=== PATIENT | female | born 1930 | race Caucasian/White ===

== ENCOUNTER 2016-05-26 13:34 | Emergency (ER) | payer OTHER ==
[~2016-05-26] VITALS: Ht 160 cm; Wt 82.2 kg
[~2016-05-26 13:34] MED LIST: CIPR500T4 PO; LOSA50TA6 PO; OMEP40CA6 PO; POLY17PO6 PO; TYL500 PO
[2016-05-26 13:41] VITALS: Ht 160 cm; Wt 82.2 kg
[2016-05-26 16:22] VITALS: BP 182/74; PULSE 70; RESP 14
== END 2016-05-26 19:55 | disposition left against medical advice (07) ==
LOC: E/R 13:34
DX: Z53.21 Procedure and treatment not carried out due to patient leaving prior to being seen by health care provider (principal)

== ENCOUNTER 2017-03-07 16:05 | Observation (INO) | payer OTHER ==
[~2017-03-07] VITALS: Ht 152.4 cm; Wt 80.8 kg
[2017-03-07] MEDS ORDERED: ASPIRIN 325 MG TAB PO STA (17:52)
[2017-03-07 18:09] LABS: BASOPHILS % 0.2 % (0.0-2.0); EOSINOPHILS # 0.1 10^3/ul (0.0-0.5); EOSINOPHILS % 1.4 % (0.0-7.0); HEMATOCRIT 36.3 % (37.0-47.0); HEMOGLOBIN 12.4 g/dl (12.0-16.0); LYMPHOCYTES # 2.8 10^3/ul (0.8-2.9); MEAN CORPUSCULAR HEMOGLOBIN 30.5 pg (29.0-33.0); MEAN CORPUSCULAR HGB CONC 34.2 g/dl (32.0-37.0); MEAN CORPUSCULAR VOLUME 89.4 fl (82.0-101.0); MEAN PLATELET VOLUME 8.6 fl (7.4-10.4); MONOCYTE # 0.6 10^3/ul (0.3-0.9); MONOCYTES % 6.9 % (0.0-11.0); NEUTROPHIL # 5.7 10^3/ul (1.6-7.5); NEUTROPHILS % 61.3 % (39.0-77.0); PLATELET COUNT 337 10^3/UL (140-415); RED BLOOD COUNT 4.06 10^6/ul (4.20-5.40); WHITE BLOOD COUNT 9.3 10^3/ul (4.8-10.8)
--- NOTE | 2017-03-07 18:15 | ERD ---
ER Documentation Chief Complaint Chief Complaint chest pain and back pain x 3 days HPI This is an 86-year-old female with a known history of hypertension who presents to the emergency department intermittent chest pain for the past 3 days. She states that the pain is located on the left chest wall does radiate to the left shoulder. She denies any radiation to the back or arm contrary to the triage note she states the pain is stated above goes to the left shoulder she states that the pain will last for roughly 30 minutes and then will spontaneously resolved. Roughly an hour prior to arrival the patient had worsening of the chest pain which became 9 out of 10 in intensity. Her caregiver immediately brought her to the emergency department to be further evaluated. She had no associated symptoms of nausea vomiting or diaphoresis. She states she has never had any similar symptoms in the past. Takes 81 mg of aspirin on a daily basis but did not take her aspirin today. She has no shortness of breath at rest or exertion. She denies any abdominal pain. Patient stated she did take Tylenol just prior to arrival which improved her pain and she currently is chest pain-free after the Tylenol ROS All systems reviewed and are negative except as per history of present illness. Medications Home Meds Reported Medications Ibuprofen* (Ibuprofen*) 200 Mg Capsule, 200 MG PO NEEDED, CAP 03/07/17 Multivit-Min/FA/Lycopen/Lutein (Centravites 50 Plus Tablet) 1 Each Tablet, 1 EACH PO DAILY, TAB 03/07/17 Calcium Carb/Magnesium Oxid/D3 (Calcium Magnesium + D Tablet) 1 Each Tablet, 1 EACH PO DAILY, TAB 03/07/17 Aspirin* (Aspirin* EC) 81 Mg Tablet.dr, 81 MG PO DAILY, TAB 03/07/17 Tramadol Hcl* (Ultram*) 50 Mg Tablet, 50 MG PO BID Y for PAIN, TAB 03/07/17 Amlodipine Besylate* (Norvasc*) 5 Mg Tablet, 5 MG PO DAILY, TAB 03/07/17 Ranitidine Hcl* (Ranitidine Hcl*) 150 Mg Tablet, 150 MG PO Q12, #60 TAB 03/07/17 Losartan Potassium* (Losartan Potassium*) 50 Mg Tablet, 50 MG PO DAILY, TAB 11/25/14 Discontinued Reported Medications Omeprazole* (Omeprazole*) 40 Mg Capsule.dr, 40 MG PO DAILY, CAP 11/25/14 Discontinued Scripts Polyethylene Glycol* (Miralax*) 17 Gm Powd.pack, 17 GM PO DAILY, #7 Prov:MALDONADO CARABALLO DO 02/17/16 Acetaminophen* (Tylenol*) 500 Mg Tab, 500 MG PO Q4H Y for MILD PAIN LEVEL 1-3, # 20 TAB Prov:MALDONADO CARABALLO DO 02/17/16 Ciprofloxacin Hcl* (Ciprofloxacin Hcl*) 500 Mg Tablet, 500 MG PO BID for 5 Days , TAB Prov:MALDONADO CARABALLO DO 02/17/16 Allergies Allergies: Coded Allergies: Penicillins (Verified Allergy, Mild, HIVES, VOMIT, 03/07/17) Sulfa (Sulfonamide Antibiotics) (Verified Allergy, Mild, HIVES,VOMIT, 02/11) PMhx/Soc History of Surgery: Yes (cholesystectomy, knee sx) Anesthesia Reaction: No Hx Neurological Disorder: No Hx Respiratory Disorders: No Hx Cardiac Disorders: Yes (htn) Hx Psychiatric Problems: No Hx Miscellaneous Medical Probl: Yes (Arthritis) Hx Alcohol Use: No Hx Substance Use: No Hx Tobacco Use: No Smoking Status: Never smoker Physical Exam Vitals Vital Signs Date Time Temp Pulse Resp B/P Pulse Ox O2 Delivery O2 Flow Rate FiO2 03/07/17 19:50 66 18 145/63 99 Room Air 03/07/17 17:41 98.0 70 21 153/66 97 Room Air 03/07/17 16:23 98.1 80 18 154/70 95 Physical Exam Constitutional:Well-developed. Well-nourished. HEENT:Normocephalic. Atraumatic.Pupils were equal round reactive to light. Moist mucous membranes.No tonsillar exudates. Neck: No nuchal rigidity. No lymphadenopathy. No posterior cervical spine tenderness or step-offs. Respiratory: Not using accessory muscles of respiration.Lungs were clear to auscultation bilaterally. No rhonchi. No rales. No wheezing. Cardiovascular: Regular rate regular rhythm.No murmurs. No rubs were appreciated.S1, S2 normal. Distal pulses are palpable 2+ bilaterally. GI: Abdomen was soft. Nontender. Non Distended. No pulsatile abdominal masses or bruits. No rebound. No guarding. Bowel sounds were present and normal. Muscle skeletal: Full range of motion of both the upper and lower extremities bilaterally.Normal muscle tone.No assymetrical calf tenderness or swelling. Skin: No petechia, no purpura. No lesions on the palms or the soles of the feet. No maculopapular rash. NEURO: Patient was alert, awake, orientated x3.No facial droop. Gait observed and normal with no ataxia.Speech had regular rate and rhythm. No focal neurological deficits. Result Diagram: 03/07/17 1741 03/07/17 1741 Results 24 hrs Laboratory Tests Test 03/07/17 17:41 White Blood Count 9.310^3/ul Red Blood Count 4.0610^6/ul Hemoglobin 12.4g/dl Hematocrit 36.3% Mean Corpuscular Volume 89.4fl Mean Corpuscular Hemoglobin 30.5pg Mean Corpuscular Hemoglobin Concent 34.2g/dl Red Cell Distribution Width 13.0% Platelet Count 04950^3/UL Mean Platelet Volume 8.6fl Neutrophils % 61.3% Lymphocytes % 30.0% Monocytes % 6.9% Eosinophils % 1.4% Basophils % 0.2% Nucleated Red Blood Cells % 0.0/100WBC Neutrophils # 5.710^3/ul Lymphocytes # 2.810^3/ul Monocytes # 0.610^3/ul Eosinophils # 0.110^3/ul Basophils # 0.010^3/ul Nucleated Red Blood Cells # 0.010^3/ul Prothrombin Time 13.2Sec Prothrombin Time Ratio 1.0 INR International Normalized Ratio 0.99 Activated Partial Thromboplast Time 31.7Sec Sodium Level 135mmol/L Potassium Level 4.2mmol/L Chloride Level 101mmol/L Carbon Dioxide Level 26mmol/L Anion Gap 12 Blood Urea Nitrogen 13mg/dl Creatinine 0.70mg/dl Glucose Level 109mg/dl Calcium Level 9.7mg/dl Total Bilirubin 0.1mg/dl Direct Bilirubin 0.00mg/dl Indirect Bilirubin 0.1mg/dl Aspartate Amino Transf (AST/SGOT) 28IU/L Alanine Aminotransferase (ALT/SGPT) 35IU/L Alkaline Phosphatase 78IU/L Creatine Kinase 119IU/L Creatine Kinase Index 1.3 Creatinine Kinase MB (Mass) 1.50ng/ml Troponin I < 0.012ng/ml B-Type Natriuretic Peptide 93PG/ML Total Protein 7.3g/dl Albumin 3.9g/dl Globulin 3.40g/dl Albumin/Globulin Ratio 1.14 Current Medications Medications (Trade) Dose Ordered Sig/Chinedu Route PRN Reason Start Time Stop Time Status Last Admin Dose Admin Aspirin (Aspirin) 325 mg ONCE STAT PO 03/07/17 17:52 03/07/17 17:56 DC 03/07/17 18:07 Ondansetron HCl (Zofran Inj) 4 mg ER BRIDGE PRN IV NAUSEA AND/OR VOMITING 03/07/17 20:30 03/08/17 20:29 Acetaminophen (Tylenol Tab) 650 mg ER BRIDGE PRN PO MILD PAIN/FEVER 03/07/17 20:30 03/08/17 20:29 Procedures/MDM The patient presented to the emergency department with chest pain. My clinical evaluation and workup was to distinguish minor causes of chest pain from acute life threatening conditions such as myocardial infarction, pulmonary embolism, aortic dissection, esophageal rupture, cardiac tamponade. The patient was placed on a threat monitoring analyst and continuous pulse oximetry. IV access established by nursing staff. The patient was given 325 mg of aspirin p.o. in the emergency department. I did not administer nitroglycerin at this time the patient was chest pain-free. 12 Lead EKG tracing ordered and reviewed by myself showed: Normal sinus rhythm of 81 bpm and no arrhythmia. NM interval normal. QRS duration widened at 136 ms with an RSR prime pattern in lead V1 V2 consistent with a right bundle branch block No ST segment elevation No ST segment depression. No changes consistent with acute ischemia. Patient's troponin was normal. However given the patient's clinical symptoms I did feel she required admission for observation for serial 12-lead EKG tracings and cardiac set of enzymes. She will be admitted to the hospitalist Dr. Metz. Departure Diagnosis: Primary Impression: Chest pain Chest pain type: unspecified Qualified Code: R07.9 - Chest pain, unspecified type Condition: Serious MARLYN EDWARD Mar 07, 2017 18:15
[2017-03-07 18:31] LABS: INR 0.99; PROTIME 13.2 Sec (11.9-14.9)
[2017-03-07 18:32] LABS: ALANINE AMINOTRANSFERASE 35 IU/L (13-69); ALBUMIN 3.9 g/dl (3.3-4.9); ALBUMIN/GLOBULIN RATIO 1.14; ALKALINE PHOSPHATASE 78 IU/L (42-121); ASPARTATE AMINO TRANSFERASE 28 IU/L (15-46); BILIRUBIN,INDIRECT 0.1 mg/dl (0-1.1); BILIRUBIN,TOTAL 0.1 mg/dl (0.2-1.3); BLOOD UREA NITROGEN 13 mg/dl (7-20); CALCIUM 9.7 mg/dl (8.4-10.2); CARBON DIOXIDE 26 mmol/L (21-31); CHLORIDE 101 mmol/L (97-110); CREATINE KINASE 119 IU/L (23-200); GLUCOSE 109 mg/dl (70-220); PARTIAL THROMBOPLASTIN TIME 31.7 Sec (25.0-35.0); SODIUM 135 mmol/L (135-144); TOTAL PROTEIN 7.3 g/dl (6.1-8.1)
[2017-03-07 18:34] LABS: ANION GAP 12 (8-16); POTASSIUM 4.2 mmol/L (3.5-5.1)
--- NOTE | 2017-03-07 18:42 | RADRPT ---
PROCEDURE: XR Chest 1 View. CLINICAL INDICATION: Chest pain. TECHNIQUE: Single view of the chest was obtained. COMPARISON: CR CHEST 02/17/2016 FINDINGS: The heart size is within normal limits. Calcified atherosclerosis is noted in the aorta. The lungs are hyperexpanded. Diffuse mild interstitial prominence is seen in both lungs. Scattered atelectasis is identified in the bilateral lower lungs. No consolidations are identified. No pneumothorax is s een. Osseous structures are intact. IMPRESSION: Calcified atherosclerosis in the aorta. Hyperexpanded lungs with diffuse mild interstitial prominence in both lungs. Interstitial prominenc e could be chronic. Findings could reflect COPD. Scattered atelectasis in the bilateral lower lungs. RPTAT: AA .Aravind Pablo MD, Date Time Electronically viewed and signed by .Aravind Pablo MD, MD on 03/07/2017 18:42 .P/
[2017-03-07 18:45] LABS: B-TYPE NATRIURETIC PEPTIDE 93 PG/ML (0-450)
[2017-03-07 19:06] LABS: TROPONIN-I < 0.012 ng/ml (0.00-0.12)
[2017-03-07] MEDS ORDERED: RANI150T5 PO (19:28)
[2017-03-07] MEDS ORDERED: AMLO5TAB4 PO (19:29)
[2017-03-07] MEDS ORDERED: ASPI-664 PO (19:30)
[2017-03-07] MEDS ORDERED: TRAM-40 PO (19:30)
[2017-03-07] MEDS ORDERED: [UNRECOGNIZED DRUG - CODE] PO (19:33)
[2017-03-07] MEDS ORDERED: MULT-900 PO (19:36)
[2017-03-07] MEDS ORDERED: IBUP200C PO (19:58)
[2017-03-07] MEDS ORDERED: BISACODYL (EC) 5 MG TAB PO PRN (20:30)
[2017-03-07] MEDS ORDERED: ACETAMINOPHEN 325 MG TAB PO PRN ×2 (20:30)
[2017-03-07] MEDS ORDERED: ONDANSETRON 4 MG TAB PO PRN (20:30)
[2017-03-07] MEDS ORDERED: NITROGLYCERIN (SL) 0.4 MG TAB SL PRN (20:30)
[2017-03-07] MEDS ORDERED: NACL 0.9% 3 ML SYG IV SCH (20:30)
[2017-03-07] MEDS ORDERED: DOCUSATE SODIUM 100 MG CAP PO PRN (20:30)
[2017-03-07] MEDS ORDERED: ONDANSETRON 4 MG INJ IV PRN (20:30)
[2017-03-07] MEDS ORDERED: traMADol 50 MG TAB PO PRN (20:30)
[2017-03-07] MEDS ORDERED: morphine 2 MG INJ IV PRN (20:30)
[2017-03-07] MEDS: AMLODIPINE 5 MG TAB PO SCH (21:55)
[2017-03-07] MEDS: CALCIUM/VITAMIN D (500/200) TAB PO SCH (21:55)
[2017-03-07] MEDS: RANITIDINE 150 MG TAB PO SCH (21:55)
[2017-03-07 21:57] VITALS: TEMP 98.2
[2017-03-07 23:34] LABS: CREATINE KINASE 102 IU/L (23-200)
[2017-03-07 23:48] LABS: CK-MB 1.35 ng/ml (0.0-2.4)
[2017-03-07 23:53] LABS: TROPONIN-I < 0.012 ng/ml (0.00-0.12)
[2017-03-08] VITALS (10 sets, daily range): BP systolic 120–154; BP diastolic 63–72; PULSE 66–166; RESP 18–20; Ht 152.4 cm; Wt 80.8 kg
[2017-03-08 05:16] LABS: BASOPHILS % 0.4 % (0.0-2.0); EOSINOPHILS # 0.1 10^3/ul (0.0-0.5); EOSINOPHILS % 1.5 % (0.0-7.0); HEMATOCRIT 38.4 % (37.0-47.0); LYMPHOCYTES # 2.2 10^3/ul (0.8-2.9); LYMPHOCYTES % 27.8 % (15.0-51.0); MEAN CORPUSCULAR HEMOGLOBIN 30.2 pg (29.0-33.0); MEAN CORPUSCULAR HGB CONC 33.9 g/dl (32.0-37.0); MEAN CORPUSCULAR VOLUME 89.3 fl (82.0-101.0); MEAN PLATELET VOLUME 8.6 fl (7.4-10.4); MONOCYTE # 0.6 10^3/ul (0.3-0.9); MONOCYTES % 7.6 % (0.0-11.0); NEUTROPHIL # 4.9 10^3/ul (1.6-7.5); NEUTROPHILS % 62.4 % (39.0-77.0); PLATELET COUNT 344 10^3/UL (140-415); RED CELL DISTRIBUTION WIDTH 12.9 % (11.5-14.5); WHITE BLOOD COUNT 7.9 10^3/ul (4.8-10.8)
[2017-03-08 06:25] LABS: ALBUMIN 3.8 g/dl (3.3-4.9); ALBUMIN/GLOBULIN RATIO 1.11; BILIRUBIN,INDIRECT 0.3 mg/dl (0-1.1); BILIRUBIN,TOTAL 0.3 mg/dl (0.2-1.3); CALCIUM 10.3 mg/dl (8.4-10.2); CHOL/HDL RATIO 4.6 RATIO; CREATINE KINASE 93 IU/L (23-200); CREATININE 0.57 mg/dl (0.44-1.00); POTASSIUM 4.7 mmol/L (3.5-5.1); TOTAL PROTEIN 7.2 g/dl (6.1-8.1)
[2017-03-08 06:26] LABS: CK-MB 1.31 ng/ml (0.0-2.4)
[2017-03-08 06:28] LABS: TROPONIN-I < 0.012 ng/ml (0.00-0.12)
[2017-03-08 06:49] LABS: THYROID STIMULATING HORMONE 2.01 MIU/L (0.465-4.680)
--- NOTE | 2017-03-08 07:03 | HP ---
Date/Time of Note Date/Time of Note DATE: 03/08/17 TIME: 06:58 Assessment/Plan VTE Prophylaxis VTE Prophylaxis Intervention: SCD's Lines/Catheters Urinary Cath still in place: No Assessment/Plan Chief Complaint/Hosp Course This is a 86 year female being admitted to the telemetry floor for: #1 chest pain: Rule out ACS. We have hypertension. She does have a right bundle branch block observed on her EKG. At the current time will trend cardiac enzymes 3, 1st set was negative. Will check echocardiogram in the a.m. Cardiology consultation. #2 hypertension: We will continue patient's home medication of Norvasc, losartan #3 reflux: We will continue a home H2 sudarshan #4 DVT and GI prolapses: SCDs, home H2 sudarshan Further treatment strategy will be implemented as per the clinical course Problems: HPI/ROS Admit Date/Time Admit Date/Time Mar 07, 2017 at 20:05 Hx of Present Illness Chief complaint: Chest pain This is an 86-year-old female with a known history of hypertension who presents to the emergency department intermittent chest pain for the past 3 days. She states that the pain is located on the left chest wall does radiate to the left shoulder. She denies any radiation to the back or arm contrary to the triage note she states the pain is stated above goes to the left shoulder she states that the pain will last for roughly 30 minutes and then will spontaneously resolved. Roughly an hour prior to arrival the patient had worsening of the chest pain which became 9 out of 10 in intensity. Her caregiver immediately brought her to the emergency department to be further evaluated. She had no associated symptoms of nausea vomiting or diaphoresis. She states she has never had any similar symptoms in the past. Takes 81 mg of aspirin on a daily basis but did not take her aspirin today. She has no shortness of breath at rest or exertion. She denies any abdominal pain. Patient stated she did take Tylenol just prior to arrival which improved her pain and she currently is chest pain-free after the Tylenol. Allergies: Penicillin, sulfa Medications: See ANTHONY LOVE Const: As per HPI Eyes : No pain discharge or redness or change in visual acuity ENT: No pain, sore throat, congestion, congestion, dysphagia or discharge Respiratory: As per HPI Cardiovascular: As per HPI GI : no change in appetite, abdominal pain, nausea, vomiting, diarrhea, constipation, or change in the color his stool Genitourinary: No dysuria, hematuria, flank pain , discharge or CVA tenderness Musculoskeletal: No joint pain, back pain, neck pain, restricted range of motion in neck or joints Skin: No rash, bruising or hives Neuro: No headache, dizziness, syncope, seizure, focal weakness Endocrine: No polyuria, polydipsia, temperature intolerance Psych: No hallucination, depression, anxiety or suicidal ideation PMH/Family/Social Past Medical History Hypertension, arthritis Past Surgical History Bilateral knee surgery, cholecystectomy, total hysterectomy, bladder surgery Family History Significant Family History: no pertinent family hx Social History Alcohol Use: none Smoking Status: Never smoker Drug Use: none Exam/Review of Systems Vital Signs Vitals Vital Signs Date Time Temp Pulse Resp B/P Pulse Ox O2 Delivery O2 Flow Rate FiO2 03/08/17 04:00 69 03/08/17 01:56 98.3 19 136/72 99 Room Air Exam Exam General: Is a very pleasant well-developed female lying in bed in no acute distress. She states that her pain has resolved. HEENT: Atraumatic, normocephalic. The pupils are equal, round and reactive. Extraocular motor are intact Neck: Supple with full range of motion. No rigidity or meningismus Lungs: Clear to auscultation bilaterally no crackles rales or wheezing Heart: Normal S1-S2, Regular rhythm and rate. No overt murmurs appreciated Abdomen: Soft , nontender, nondistended , bowel sounds are present. No guarding no rebound tenderness , No masses or organomegaly. No costovertebral temporal angle mass Extremities: Normal to inspection, no edema no cyanosis Neurologic: Normal mental status, speech normal, cranial nerves II through XII are intact, motor and sensory are intact, no focal weakness Additional Comments PROCEDURE: XR Chest 1 View. CLINICAL INDICATION: Chest pain. TECHNIQUE: Single view of the chest was obtained. COMPARISON: CR CHEST 02/17/2016 FINDINGS: The heart size is within normal limits. Calcified atherosclerosis is noted in the aorta. The lungs are hyperexpanded. Diffuse mild interstitial prominence is seen in both lungs. Scattered atelectasis is identified in the bilateral lower lungs. No consolidations are identified. No pneumothorax is seen. Osseous structures are intact. IMPRESSION: Calcified atherosclerosis in the aorta. Hyperexpanded lungs with diffuse mild interstitial prominence in both lungs. Interstitial prominence could be chronic. Findings could reflect COPD. Scattered atelectasis in the bilateral lower lungs. RPTAT: AA .Aravind Pablo MD, Date Time Electronically viewed and signed by .Aravind Pablo MD, MD on 03/07/2017 18:42 .P/ CC: MARLYN EDWARD 12 Lead EKG tracing ordered and reviewed by myself showed: Normal sinus rhythm of 81 bpm and no arrhythmia. [place] interval normal. QRS duration widened at 136 ms with an RSR prime pattern in lead V1 V2 consistent with a right bundle branch block No ST segment elevation No ST segment depression. No changes consistent with acute ischemia. Above as per ED physician documentation Labs Result Diagram: 03/08/17 04303/08/17 043 Medications Medications Current Medications Amlodipine Besylate (Norvasc) 5 mg DAILY PO Last administered on 03/07/17 21: 55; Admin Dose 5 MG; Start 03/07/17 at 20:30 Aspirin (Halfprin) 81 mg DAILY PO ; Start 03/08/17 at 09:00 Losartan Potassium (Cozaar) 50 mg DAILY PO ; Start 03/08/17 at 09:00 Ranitidine HCl (Zantac) 150 mg Q12 PO Last administered on 03/07/17 21:55; Admin Dose 150 MG; Start 03/07/17 at 21:00 Tramadol HCl (Ultram) 50 mg BID PRN PO PAIN; Start 03/07/17 at 20:30 Calcium/Vitamin D (Oyster Shell/ Vit-D (500/200)) 1 tab DAILY PO Last administered on 03/07/17 21:55; Admin Dose 1 TAB; Start 03/07/17 at 21:30 Multivitamins/ Minerals (Theragran-M) 1 tab DAILY PO ; Start 03/08/17 at 09:00 Ondansetron HCl (Zofran Tab) 4 mg Q6H PRN PO NAUSEA AND/OR VOMITING; Start 02/11 at 20:30 Nitroglycerin (Nitroglycerin (Sl Tab) 0.4 Mg) 1 tab Q5M PRN SL CHEST PAIN; Start 03/07/17 at 20:30 Acetaminophen (Tylenol Tab) 650 mg Q6H PRN PO PAIN LEVEL 1-3 OR FEVER; Start 03/07/17 at 20:30 Morphine Sulfate (morphine) 1 mg Q4H PRN IV PAIN LEVEL 7-10; Start 03/07/17 at 20:30 Docusate Sodium (Colace) 100 mg Q12H PRN PO CONSTIPATION; Start 03/07/17 at 20 :30 Bisacodyl (Dulcolax) 5 mg DAILY PRN PO CONSTIPATION; Start 03/07/17 at 20:30 MARLY GORE Mar 08, 2017 07:03
[2017-03-08] MEDS: SOD CHLORIDE 0.9% 1,000 ML IV SCH (07:58)
[2017-03-08] MEDS: ASPIRIN (EC) 81 MG TAB PO SCH (11:01)
[2017-03-08] MEDS: LOSARTAN 50 MG TAB PO SCH (11:01)
[2017-03-08] MEDS: CALCIUM/VITAMIN D (500/200) TAB PO SCH (11:02)
[2017-03-08] MEDS: MULTIVITAMINS/MINERALS TAB PO SCH (11:03)
[2017-03-08] MEDS: RANITIDINE 150 MG TAB PO SCH ×2 (11:03→22:17)
[2017-03-08] MEDS: AMLODIPINE 5 MG TAB PO SCH (11:04)
--- NOTE | 2017-03-08 14:21 | RADRPT ---
Echocardiogram Report Patient Name: ROGER RAM Gender: Female Date: 1930 Study Date: 08-Mar-2017 Wheel Adjuster: Nomi Zhong [facility] Location: [facility] Ref. Physician: MARLY GORE Quality: Adequate Procedures: Transthoracic echocardiogram with complete 2D, M-Mode, and doppler examination. Indications: Chest Pain. 2D/M Mode Doppler Measurement Value Normal Ranges Measurement Value Normal Ranges LVIDd 2D 4.4 3.5 - 5.6 cm AV Peak Placido 1.9 m/sec LVIDs 2D 2.9 2.1 - 4.1 cm AV Peak PG 13.9 mmHg LVPWd 2D 0.8 0.6 - 1.1 cm AI Peak PG 48.3 mmHg IVSd 2D 1.0 0.6 - 1.1 cm AI Peak Placido 3.5 m/sec AoR Diam 2D 2.9 2.0 - 3.7 cm AI PHT 376.8 msec EDV 2D 90.0 cm3 LVOT Peak Placido 1.2 m/sec ESV 2D 24.9 cm3 LVOT Peak PG 6.1 mmHg LA Dimen 2D 3.6 2.3 - 4.0 cm MV E Peak Placido 0.8 m/sec MV A Peak Placido 1.5 m/sec MV E/A 0.5 MV Decel Time 189 msec MV Decel Wright 4 MV E/A 0.5 TR Peak Placido 2.6 m/sec TR Peak PG 27.8 mmHg RVSP 38.0 mmHg Findings Left Ventricle: Normal left ventricular systolic function. Normal left ventricular cavity size. Normal left ventricular wall thickness. Ejection fraction is visually estimated at 60 %. Tissue Doppler/Mitral Doppler indices are consistent with impaired relaxation (Stage I diastolic dysfunction). Right Ventricle: Normal right ventricular size. Normal right ventricular systolic function. Left Atrium: The left atrium is normal in size. Right Atrium: The right atrium is normal in size. Mitral Valve: Mitral valve leaflets appear mildly thickened. Moderate mitral annular calcification. Trace mitral regurgitation. Aortic Valve: No hemodynamically significant aortic stenosis by doppler. Aortic cusps appear mildly calcified. Mild to moderate aortic valve regurgitation. Tricuspid Valve: Normal appearance of the tricuspid valve. Estimated peak PA systolic pressure 38 mmHg. There is trace to mild tricuspid regurgitation. Pulmonic Valve: Normal pulmonic valve appearance. Pericardium: Normal pericardium with no significant pericardial effusion. Aorta: Normal aortic root. IVC: Normal size and normal respiratory collapse consistent with normal right atrial pressure. Conclusions 1.Normal left ventricular systolic function. Normal left ventricular cavity size. Normal left ventricular wall thickness. Ejection fraction is visually estimated at 60 %. Tissue Doppler/Mitral Doppler indices are consistent with impaired relaxation (Stage I diastolic dysfunction). 2.Mitral valve leaflets appear mildly thickened. Moderate mitral annular calcification. Trace mitral regurgitation. 3.No hemodynamically significant aortic stenosis by doppler. Aortic cusps appear mildly calcified. Mild to moderate aortic valve regurgitation. 4.Normal appearance of the tricuspid valve. Estimated peak PA systolic pressure 38 mmHg. There is trace to mild tricuspid regurgitation. 5.Normal size and normal respiratory collapse consistent with normal right atrial pressure. Electronically Signed By: Wai Rockwell 08-Mar-2017 14:20:09 0800 Patient Name: ROGER RAM Study Date: 08-Mar-2017 [id number]
--- NOTE | 2017-03-08 14:53 | CONS ---
Date/Time of Note Date/Time of Note DATE: 03/08/17 TIME: 14:46 Assessment/Plan Assessment/Plan Chief Complaint/Hosp Course 1. Chest pain syndrome rule out acute coronary syndrome 2. Hypertension 3. Abnormal EKG 4. Back pain Recommendation: Patient has been admitted for rule out myocardial infarction. Cardiac enzymes have been so far negative. I will add Coreg to her regimen to control the blood pressure better. Lexiscan hearing aid assistant will be done thoracic and nonobstructive coronary artery disease. For now we will continue to monitor on telemetry. Thank you for his referral. We will continue to follow along with you. BERNARDO VERMA MD [facility] Problems: Consultation Date/Type/Reason Admit Date/Time Mar 07, 2017 at 20:05 Date of Consultation: Mar 08, 2017 Type of Consultation: cardiology Reason for Consultation chest pain Referring Provider: MARLY GORE Hx of Present Illness : Chief complaint :chest pain back pain History of present illness: Thank you for his ramp supervisor was obtained from the patient and discussion with her niece. This is a pleasant 86-year-old female with history of hypertension who was admitted through emergency room with complaint of chest pain. Patient is a poor historian could not describe the pain well. She has had chest pain on the left side also going to her back. He could not explain any exacerbating or relieving factor to it. Currently patient is chest pain-free. Troponins have been negative so far. She does complain of exertional fatigue and tiredness but the pain does not appear to be clearly related to the exertion though. Medication review of her medical reconciliation sheet Social history does not smoke or drink Family history: Noted for early coronary artery disease Allergies to penicillin and sulfa Review of system of the bowel mention. Patient also with arthritis and lower back pain Social History Alcohol Use: none Smoking Status: Never smoker Drug Use: none Exam/Review of Systems Vital Signs Vitals Vital Signs Date Time Temp Pulse Resp B/P Pulse Ox O2 Delivery O2 Flow Rate FiO2 03/08/17 12:00 83 03/08/17 08:30 98.5 20 154/69 95 Room Air Exam General: Elderly female in no acute distress HEENT: Normocephalic atraumatic. Pupils are equal. Neck supple no JVD noted. Cardiovascular: Regular rate and rhythm with grade 1 systolic and diastolic murmur. pulmonary anteriorly with no wheezes or rhonchi noted. GI soft obese nontender. No rebound or guarding. Extremity with severe lower extremity edema. Neuro: Awake alert oriented 3 responds appropriately Psych appear to be, pleasant EKG: Was personally reviewed and showed normal sinus rhythm with right bundle branch block Echo was personally reviewed: 1. Normal left ventricular systolic function. Normal left ventricular cavity size. Normal left ventricular wall thickness. Ejection fraction is visually estimated at 60 %. Tissue Doppler/Mitral Doppler indices are consistent with impaired relaxation (Stage I diastolic dysfunction). 2. Mitral valve leaflets appear mildly thickened. Moderate mitral annular calcification. Trace mitral regurgitation. 3. No hemodynamically significant aortic stenosis by doppler. Aortic cusps appear mildly calcified. Mild to moderate aortic valve regurgitation. 4. Normal appearance of the tricuspid valve. Estimated peak PA systolic pressure 38 mmHg. There is trace to mild tricuspid regurgitation. 5. Normal size and normal respiratory collapse consistent with normal right atrial pressure. Results Result Diagram: 03/08/17 0431 03/08/17 0431 Results 24 hrs Laboratory Tests Test 03/07/17 17:41 03/07/17 23:01 03/08/17 04:31 White Blood Count 9.3 7.9 Red Blood Count 4.06 L 4.30 Hemoglobin 12.4 13.0 Hematocrit 36.3 L 38.4 Mean Corpuscular Volume 89.4 89.3 Mean Corpuscular Hemoglobin 30.5 30.2 Mean Corpuscular Hemoglobin Concent 34.2 33.9 Red Cell Distribution Width 13.0 12.9 Platelet Count 337 344 Mean Platelet Volume 8.6 # 8.6 Neutrophils % 61.3 62.4 Lymphocytes % 30.0 27.8 Monocytes % 6.9 7.6 Eosinophils % 1.4 1.5 Basophils % 0.2 0.4 Nucleated Red Blood Cells % 0.0 0.0 Neutrophils # 5.7 4.9 Lymphocytes # 2.8 2.2 Monocytes # 0.6 0.6 Eosinophils # 0.1 0.1 Basophils # 0.0 0.0 Nucleated Red Blood Cells # 0.0 0.0 Prothrombin Time 13.2 Prothrombin Time Ratio 1.0 INR International Normalized Ratio 0.99 Activated Partial Thromboplast Time 31.7 Sodium Level 135 141 Potassium Level 4.2 4.7 Chloride Level 101 102 Carbon Dioxide Level 26 28 Anion Gap 12 16 Blood Urea Nitrogen 13 11 Creatinine 0.70 0.57 Glucose Level 109 116 Calcium Level 9.7 10.3 H Total Bilirubin 0.1 L 0.3 Direct Bilirubin 0.00 0.00 Indirect Bilirubin 0.1 0.3 Aspartate Amino Transf (AST/SGOT) 28 23 Alanine Aminotransferase (ALT/SGPT) 35 37 Alkaline Phosphatase 78 75 Creatine Kinase 119 102 93 Creatine Kinase Index 1.3 1.3 1.4 Creatinine Kinase MB (Mass) 1.50 1.35 1.31 Troponin I < 0.012 < 0.012 < 0.012 B-Type Natriuretic Peptide 93 Total Protein 7.3 7.2 Albumin 3.9 3.8 Globulin 3.40 H 3.40 H Albumin/Globulin Ratio 1.14 1.11 Hemoglobin A1c 5.8 Triglycerides Level 185 H Cholesterol Level 195 LDL Cholesterol, Calculated 116 HDL Cholesterol 42 Cholesterol/HDL Ratio 4.6 Thyroid Stimulating Hormone (TSH) 2.010 Medications Medications Current Medications Amlodipine Besylate (Norvasc) 5 mg DAILY PO Last administered on 03/08/17 11: 04; Admin Dose 5 MG; Start 03/07/17 at 20:30 Aspirin (Halfprin) 81 mg DAILY PO Last administered on 03/08/17 11:01; Admin Dose 81 MG; Start 03/08/17 at 09:00 Losartan Potassium (Cozaar) 50 mg DAILY PO Last administered on 03/08/17 11: 01; Admin Dose 50 MG; Start 03/08/17 at 09:00 Ranitidine HCl (Zantac) 150 mg Q12 PO Last administered on 03/08/17 11:03; Admin Dose 150 MG; Start 03/07/17 at 21:00 Tramadol HCl (Ultram) 50 mg BID PRN PO PAIN; Start 03/07/17 at 20:30 Calcium/Vitamin D (Oyster Shell/ Vit-D (500/200)) 1 tab DAILY PO Last administered on 03/08/17 11:02; Admin Dose 1 TAB; Start 03/07/17 at 21:30 Multivitamins/ Minerals (Theragran-M) 1 tab DAILY PO Last administered on 03/08 11:03; Admin Dose 1 TAB; Start 03/08/17 at 09:00 Ondansetron HCl (Zofran Tab) 4 mg Q6H PRN PO NAUSEA AND/OR VOMITING; Start 02/11 at 20:30 Nitroglycerin (Nitroglycerin (Sl Tab) 0.4 Mg) 1 tab Q5M PRN SL CHEST PAIN; Start 03/07/17 at 20:30 Acetaminophen (Tylenol Tab) 650 mg Q6H PRN PO PAIN LEVEL 1-3 OR FEVER; Start 03/07/17 at 20:30 Morphine Sulfate (morphine) 1 mg Q4H PRN IV PAIN LEVEL 7-10; Start 03/07/17 at 20:30 Docusate Sodium (Colace) 100 mg Q12H PRN PO CONSTIPATION; Start 03/07/17 at 20 :30 Bisacodyl 5 mg 5 mg DAILY PRN PO CONSTIPATION; Start 03/07/17 at 20:30 Sodium Chloride (NS) 1,000 ml @ 60 mls/hr [id number] IV Last administered on t 07:58; Admin Dose 60 MLS/HR; Start 03/08/17 at 07:30 Carvedilol (Coreg) 3.125 mg BID PO ; Start 03/08/17 at 21:00 BERNARDO VERMA MD Mar 08, 2017 14:53
[2017-03-09] VITALS (8 sets, daily range): BP systolic 114–133; BP diastolic 63–72; PULSE 57–70; RESP 14–17
[2017-03-09] MEDS: SOD CHLORIDE 0.9% 1,000 ML IV SCH (00:32)
[2017-03-09 06:49] LABS: CREATINE KINASE 85 IU/L (23-200)
[2017-03-09 07:01] LABS: ALBUMIN 3.4 g/dl (3.3-4.9); ALBUMIN/GLOBULIN RATIO 1.09; BILIRUBIN,INDIRECT 0.5 mg/dl (0-1.1); BILIRUBIN,TOTAL 0.5 mg/dl (0.2-1.3); CALCIUM 9.5 mg/dl (8.4-10.2); CHOL/HDL RATIO 4.8 RATIO; CK-MB 1.12 ng/ml (0.0-2.4); CREATININE 0.76 mg/dl (0.44-1.00); POTASSIUM 4.7 mmol/L (3.5-5.1); TOTAL PROTEIN 6.5 g/dl (6.1-8.1)
[2017-03-09 07:07] LABS: TROPONIN-I < 0.012 ng/ml (0.00-0.12)
[2017-03-09] MEDS ORDERED: REGADENOSON 0.4 MG/5 ML SYG ONE (08:12)
[2017-03-09] MEDS: ASPIRIN (EC) 81 MG TAB PO SCH (10:50)
[2017-03-09] MEDS: RANITIDINE 150 MG TAB PO SCH (10:51)
[2017-03-09] MEDS: MULTIVITAMINS/MINERALS TAB PO SCH (10:52)
--- NOTE | 2017-03-09 11:10 | RADRPT ---
PROCEDURE: Nuclear medicine myocardial perfusion scan CLINICAL INDICATION: Chest pain TECHNIQUE: 30.5 mCi of technetium 99m Cardiolite was administered for the stress study. 10.2 mCi of technetium 99m Cardiolite was administered for the resting study. The patient was stressed with 0 .4 mg of Lexiscan. Images were reviewed in the short axis, vertical long axis, and horizontal long axis views. Wall motion was assessed and ejection fraction was calculated as well. Images were revi ewed on a high-resolution PACS workstation. COMPARISON: None available FINDINGS: Left ventricular size is within normal limits. The stress tomographic images demonstrate a normal pattern of perfusion. The resting tomographic images demonstrate a similar pattern. There is no ev idence for reversible ischemia. Wall motion is normal. The ejection fraction is calculated at grea ter than 70%. IMPRESSION: 1. Negative myocardial perfusion scan. 2. There is no evidence for reversible ischemia. 3. Normal wall motion with normal ejection fraction of greater than 70%. RPTAT: [facility] Physician Dinora Date Time Electronically viewed and signed by Physician Dinora on 03/09/2017 11:10 /
--- NOTE | 2017-03-09 11:16 | DS ---
Date/Time of Note Date/Time of Note DATE: 03/09/17 TIME: 11:14 Discharge Summary Admission/Discharge Info Admit Date/Time Mar 07, 2017 at 20:05 Discharge Date/Time Discharge Diagnosis Noncardiac chest pain Patient Condition: Good Hospital Course Patient was ruled out for ACS with negative biomarkers. She underwent TTE and nuclear stress testing which were unremarkable. Symptoms resolved. Her noncardiac chest pain perhaps GI in nature. She does not have any musculoskeletal pain on my examination. She was encouraged to follow up with her primary doctor for further care. Home Meds Reported Medications Ibuprofen* (Ibuprofen*) 200 Mg Capsule, 200 MG PO NEEDED, CAP 03/07/17 Multivit-Min/FA/Lycopen/Lutein (Centravites 50 Plus Tablet) 1 Each Tablet, 1 EACH PO DAILY, TAB 03/07/17 Calcium Carb/Magnesium Oxid/D3 (Calcium Magnesium + D Tablet) 1 Each Tablet, 1 EACH PO DAILY, TAB 03/07/17 Aspirin* (Aspirin* EC) 81 Mg Tablet.dr, 81 MG PO DAILY, TAB 03/07/17 Tramadol Hcl* (Ultram*) 50 Mg Tablet, 50 MG PO BID Y for PAIN, TAB 03/07/17 Amlodipine Besylate* (Norvasc*) 5 Mg Tablet, 5 MG PO DAILY, TAB 03/07/17 Ranitidine Hcl* (Ranitidine Hcl*) 150 Mg Tablet, 150 MG PO Q12, #60 TAB 03/07/17 Losartan Potassium* (Losartan Potassium*) 50 Mg Tablet, 50 MG PO DAILY, TAB 11/25/14 Discontinued Reported Medications Omeprazole* (Omeprazole*) 40 Mg Capsule.dr, 40 MG PO DAILY, CAP 11/25/14 Discontinued Scripts Polyethylene Glycol* (Miralax*) 17 Gm Powd.pack, 17 GM PO DAILY, #7 Prov:MALDONADO CARABALLO DO 02/17/16 Acetaminophen* (Tylenol*) 500 Mg Tab, 500 MG PO Q4H Y for MILD PAIN LEVEL 1-3, # 20 TAB Prov:GREENALLIMALDONADO DO 02/17/16 Ciprofloxacin Hcl* (Ciprofloxacin Hcl*) 500 Mg Tablet, 500 MG PO BID for 5 Days , TAB Prov:MALDONADO CARABALLO DO 02/17/16 Primary Care Provider Shannan Vaughn Pending Labs Laboratory Tests Test 03/09/17 06:17 Sodium Level 141mmol/L (135-144) Potassium Level 4.7mmol/L (3.5-5.1) Chloride Level 104mmol/L (97-110) Carbon Dioxide Level 26mmol/L (21-31) Anion Gap 16 (8-16) Blood Urea Nitrogen 15mg/dl (7-20) Creatinine 0.76mg/dl (0.44-1.00) Glucose Level 118mg/dl (70-220) Calcium Level 9.5mg/dl (8.4-10.2) Total Bilirubin 0.5mg/dl (0.2-1.3) Direct Bilirubin 0.00mg/dl (0.00-0.20) Indirect Bilirubin 0.5mg/dl (0-1.1) Aspartate Amino Transf (AST/SGOT) 20IU/L (15-46) Alanine Aminotransferase (ALT/SGPT) 31IU/L (13-69) Alkaline Phosphatase 64IU/L (42-121) Creatine Kinase 85IU/L (23-200) Creatine Kinase Index 1.3 Creatinine Kinase MB (Mass) 1.12ng/ml (0.0-2.4) Troponin I < 0.012ng/ml (0.00-0.12) Total Protein 6.5g/dl (6.1-8.1) Albumin 3.4g/dl (3.3-4.9) Globulin 3.10g/dl (1.3-3.2) Albumin/Globulin Ratio 1.09 Triglycerides Level 132mg/dl (0-149) Cholesterol Level 190mg/dl (100-200) LDL Cholesterol, Calculated 125mg/dl HDL Cholesterol 39mg/dl (33-92) Cholesterol/HDL Ratio 4.8JANY VAZQUEZ MD Mar 09, 2017 11:16
[2017-03-09] MEDS: CALCIUM/VITAMIN D (500/200) TAB PO SCH (12:20)
[2017-03-09] MEDS: AMLODIPINE 5 MG TAB PO SCH (12:21)
[2017-03-09] MEDS: LOSARTAN 50 MG TAB PO SCH (12:22)
--- NOTE | 2017-03-10 16:50 | PN ---
DATE: 03/09/2017 CARDIOLOGY FOLLOWUP PROGRESS NOTE SUBJECTIVE: Discussed with the staff. Rhythm strip was reviewed. The patient denies any more ches t pain or pressure to me. Denies any palpitations to me. The patient remains in sinus rhythm. MEDICATIONS: Reviewed. PHYSICAL EXAMINATION: VITAL SIGNS: Temperature 98.2, heart rate of 64, blood pressure 121/72, respiration rate of 18, sat urating 95% on room air. HEENT: Normocephalic, atraumatic. Pupils are round. CARDIOVASCULAR: Regular rate and rhythm, systolic murmur. PULMONARY: With no wheezes. GASTROINTESTINAL: Soft, nontender. EXTREMITIES: Trivial edema. NEUROLOGIC: Awake, responds appropriately. PSYCHIATRIC: Appears to be calm and pleasant. LABORATORY: Troponin this morning was less than 0.12. Sodium 141, potassium 4.7, BUN of 15, creati nine 0.72, glucose 118, cholesterol 190, LDL 125. ASSESSMENT AND PLAN 1. Chest pain syndrome, rule acute coronary syndrome. 2. Hypertension, under better control now with the addition of carvedilol. 3. Abnormal EKG, right bundle branch block. 4. Back pain. 5. Dyslipidemia. RECOMMENDATIONS: The patient has been ruled out for myocardial infarction. Lexiscan test will be d one today to rule out significant obstructive coronary artery disease. Continue with the rest of he r cardiac care for now. Discharge planning if the stress test is negative, otherwise if significant ischemia noted, will proceed with a coronary angiogram. Dictated By: BERNARDO MANZANO/LUPIS Conf#: [id number] DID#: [id number]
== END 2017-03-09 16:05 | disposition home or self-care (01) ==
LOC: E/R 16:05 → MS3 20:05
PROVIDERS: ADMIT Family Medicine; ATTEND Family Medicine
DX: R07.89 Other chest pain (principal); I10 Essential (primary) hypertension; E78.5 Hyperlipidemia, unspecified; R94.31 Abnormal electrocardiogram [ECG] [EKG]; I45.10 Unspecified right bundle-branch block; M54.9 Dorsalgia, unspecified; M19.90 Unspecified osteoarthritis, unspecified site; Z79.82 Long term (current) use of aspirin; Z88.0 Allergy status to penicillin; Z88.2 Allergy status to sulfonamides
CPT/HCPCS: 71010; 78452; 80053; 80061; 82550; 82553; 83036; 83880; 84443; 84484; 85025; 85610; 85730; 93005; 93017; 93306; 99285; A9500; A9505; G0378; J2785; J7030